=== PATIENT | female | born 1985 | race Caucasian/White ===

== ENCOUNTER 2016-11-15 23:05 | Emergency (ER) | payer SELFPAY ==
--- NOTE | ~2016-11-15 | CR72 ---
[facility] A Service of [facility] RADIOLOGY TEXT RESULTS PATIENT: MARY CARMEN LYON LOCATION: [place] : [birth year] UNIT #: [id number] AGE: [address]: ELVER PARRISH APRN SEX: F ORDER DR: [id number] [facility] [address] [place], [place] [address] [id number] E MR#: [id number] Acc #: [id number] NAME: MARY CARMEN LYON : 1985 SEX: F STUDY DATE/TIME: 11/16/2016 1:03 UNIT: [facility] ROOM: STUDY DESCRIPTION: CR Chest Single View Portable Attending Physician: Elver Parrish Aprn Ordering Physician: Elver Parrish Aprn [facility]AG[facility] REPORT This report is preliminary unless electronic signature is present EXAM Portable AP view chest COMPARISON June 13, 2016, November 14, 2012, June 26, 2012. INDICATIONS 31-year-old female with dyspnea, wheezing and sore throat since this morning. History of asthma. FINDINGS Cardiomediastinal silhouette is normal. No evidence of pneumothorax or pleural effusion. There is grossly stable appearance of the pulmonary interstitium which appears mildly prominent, perhaps reflecting reactive airways disease. No evidence of pneumothorax, pleural effusion or consolidative pneumonia. IMPRESSION Stable prominence of pulmonary interstitium, perhaps reflecting reactive airways disease. No evidence of acute pneumonia, pneumothorax or pleural effusion. Dictated by... Aj Tubbs M.D. THIS IS AN ELECTRONICALLY VERIFIED REPORT Aj Tubbs M.D. at 11/19/2016 7:45 PM IOANA/khalida TD: 11/16/2016 09:36 JOB #: [id number] MEDICAL IMAGING REPORT [facility] A Service [facility] RADIOLOGY TEXT RESULTS PATIENT: MARY CARMEN LYON LOCATION: [facility] : [birth year] UNIT #: [id number] AGE: [address]: ELVER PARRISH APRN SEX: F ORDER DR: COPY
[2016-11-15 21:10] LABS: INFLUENZA A NEG (NEG); INFLUENZA B NEG (NEG)
[~2016-11-15 23:05] MED LIST: AFRIN3 ML; ALBUTEROL2.5 MG/0.5 IH; ALBUTEROL20 ml INH; ALPRAZOLAM; AMOXICILLIN500 M1 PO; AMOXICILLIN875 MG PO; ANTIVERT PO; ATIVAN; BENADRYL25 M3 PO; BENTYL20 M1 PO; BENTYL20 MG PO; CARBAMAZEPINE200 M3 PO; CARBATROL100 MG; CIPRO PO; CLINDAMYCIN HC300 MG PO; COLACE PO; DARVOCET-N 1001 TA1 DOB; DENTAL BALLS; DEPAKOTE250 MG PO; DICLOFENAC PO; DIFLUCAN100 MG PO; DOCUSATE SODIU100 MG PO; DOXYCYCLINE HY100 M1 PO; DOXYCYCLINE PO; ERYTHROMYCIN F250 MG PO; FIORICET1 TAB DOB; FIORICET1 TAB PO; FLAGYL PO; HYDROMET SYRUP480 ML PO; IBUPROFEN PO; IMITREX25 MG DOB; IMITREX25 MG PO; KEFLEX500 MG PO; LORTAB 5/500 TA1 TA1 PO; MILK OF MAGNESIA PO; MOBIC PO; NAPROSYN500 MG PO; NAPROXEN PO; NORCO 5/325 TAB1 TAB PO; NORFLEX100 M1 PO; PAIN RELIEVER325 M1 PO; PEN-VEE K PO; PERCOCET5/325 PO; PERIDEX480 ML PO; PHENERGAN25 M1 PO; PREDNISONE PO; PRILOSEC20 MG PO; PROVENTIL17 GM IH; PROZAC PO; PROZAC40 MG PO; PYRIDIUM100 MG PO; SUDAFED PE COLD1 TAB PO; TEGRETOL PO; TYLENOL #3 PO; ULTRAM PO; VIBRAMYCIN100 M1 PO; VICODIN 5/1 TAB 5/50 PO; VICODIN 5/500 T1 TAB PO; VOLTAREN75 MG PO; XANAX XR1 MG PO; XANAX1 MG PO; ZITHROMAX1 G/PKT PO; ZOFRAN ODT4 MG/UDTAB PO; ZOVIRAX800 MG PO; ZYVOX600 MG PO
[2016-11-16 00:44] LABS: URINE APPEARANCE CLOUDY; URINE BILIRUBIN NEG (NEG); URINE BLOOD 3+ (NEG); URINE COLOR YELLOW; URINE GLUCOSE NEG (NEG); URINE KETONE NEG (NEG); URINE LEUKOCYTE ESTERASE NEG (NEG); URINE NITRATE NEG (NEG); URINE PROTEIN NEG (NEG); URINE SPECIFIC GRAVITY 1.024 (1.003-1.035); URINE UROBILINOGEN 0.2 MG/DL (NEG)
[2016-11-16 00:47] LABS: CULTURE INDICATED? YES; U HYALINE CASTS AUWI 0-2 /[LPF]; URINE BACTERIA AUWI 2+ (NEGATIVE); URINE SQUAMOUS EPITHELIAL CELL FEW /[HPF]
== END 2016-11-16 03:08 | disposition home or self-care (01) ==
LOC: CED 23:05
PROVIDERS: Nurse Practitioner Family
DX: J98.01 Acute bronchospasm (principal); R05 Cough; F43.10 Post-traumatic stress disorder, unspecified; G43.909 Migraine, unspecified, not intractable, without status migrainosus; F31.9 Bipolar disorder, unspecified; Z88.2 Allergy status to sulfonamides; Z88.8 Allergy status to other drugs, medicaments and biological substances
CPT/HCPCS: 71010; 81003; 84703; 87086; 87651; 87804; 87880; 94640; 99283

== ENCOUNTER 2017-03-10 01:54 | Emergency (ER) | payer BC ==
--- NOTE | ~2017-03-10 | CT71 ---
[facility] A Service of [facility] RADIOLOGY TEXT RESULTS PATIENT: MARY CARMEN LYON LOCATION: SED : [birth year] UNIT #: [id number] AGE: [address]: Leroy Pugh MD SEX: F ORDER DR: [id number] [place] [id number] E MR#: [id number] Acc #: [id number] NAME: MARY CARMEN LYON : 1985 SEX: F STUDY DATE/TIME: 03/10/2017 03:05 UNIT: SED ROOM: STUDY DESCRIPTION: CT Head Wo Contrast Attending Physician: Leroy Pugh M.D. Ordering Physician: Leroy Pugh M.D. Primary Care Physician: [facility] IMAGING REPORT This report is preliminary unless electronic signature is present. EXAM Head CT, 03/10 at 03:05 INDICATION Headache with possible seizure today. History of seizures. COMPARISON 01/12/[address] exam was performed with one or more of the following radiation dose reduction techniques: automatic exposure control, adjustment of mA and/or kV according to patient size, and iterative reconstruction. FINDINGS Axial noncontrast images were obtained from the skull base to the vertex. Ventricular size and configuration are normal. There is no evidence of acute infarct or hemorrhage. There are no extraaxial fluid collections. No mass lesion or mass effect is seen. There are no skull fractures. IMPRESSION Normal noncontrast head CT. Dictated by... Jose Luis Ng Jr., M.D. THIS IS AN ELECTRONICALLY VERIFIED REPORT Jose Luis Ng Jr., M.D. at 03/10/2017 9:53 PM NATHALIE/melly TD: 03/10/2017 09:03 JOB #: [id number] [facility] A Service of [facility] RADIOLOGY TEXT RESULTS PATIENT: MARY CARMEN LYON LOCATION: SED : [birth year] UNIT #: [id number] AGE: [address]: Leroy Pugh MD SEX: F ORDER DR: MEDICAL IMAGING REPORT Page 1 of 1
--- NOTE | ~2017-03-10 | CT4 ---
[facility] A Service of [facility] RADIOLOGY TEXT RESULTS PATIENT: MARY CARMEN LYON LOCATION: SED : [birth year] UNIT #: [id number] AGE: [address]: Leroy Pugh MD SEX: F ORDER DR: [id number] [place] [id number] E MR#: [id number] Acc #: [id number] NAME: MARY CARMEN LYON : 1985 SEX: F STUDY DATE/TIME: 03/10/2017 03:02 UNIT: SED ROOM: STUDY DESCRIPTION: CT Abd and Pelv Wo Cont Attending Physician: Leroy Pugh M.D. Ordering Physician: Leroy Pugh M.D. Primary Care Physician: [facility] IMAGING REPORT This report is preliminary unless electronic signature is present. EXAM CT abdomen and pelvis, 03/10 at 03:02 INDICATION Left lower quadrant pain with burning for 4 days. TECHNIQUE Axial images were obtained through the abdomen and pelvis without contrast. Multiplanar reformats were obtained. This CT exam was performed with one or more of the following radiation dose reduction techniques: automatic exposure control, adjustment of mA and/or kV according to patient size, and iterative reconstruction. COMPARISON 02/08/2013 FINDINGS ABDOMEN: Lung bases are clear. Gallbladder unremarkable. Tiny bilateral nonobstructing renal stones are seen. There are no ureteral stones, and there is no hydronephrosis. Unenhanced solid organs are otherwise normal. Unopacified GI tract is normal. There is no free fluid. PELVIS: There are no lower ureteral stones. The bladder is relatively decompressed but grossly normal. Uterus is retroflexed. Tubal ligation clips are present. The appendix is normal. The remainder of the unopacified GI tract is normal as well. Trace free fluid is probably physiologic. Note is made of multiple body piercings. IMPRESSION 1. Tiny bilateral nonobstructing renal stones. No ureteral stones are seen and there is no hydronephrosis. 2. Normal unopacified GI tract, including the appendix. [facility] A Service of [facility] RADIOLOGY TEXT RESULTS PATIENT: MARY CARMEN LYON LOCATION: SED : [birth year] UNIT #: [id number] AGE: [address]: Leroy Pugh MD SEX: F ORDER DR: 3. Trace free fluid in the cul-de-sac, probably a physiologic finding. 4. Tubal ligation. Dictated by... Jose Luis Ng Jr., M.D. THIS IS AN ELECTRONICALLY VERIFIED REPORT Jose Luis Ng Jr., M.D. at 03/10/2017 9:53 PM NATHALIE/melly TD: 03/10/2017 08:57 JOB #: [id number] MEDICAL IMAGING REPORT Page 1 of 1
[2017-03-10] MEDS ORDERED: TEGRETOL XR200 M1 PO (02:03)
[2017-03-10 02:22] LABS: URINE SOURCE CLEAN CATCH
[2017-03-10 02:24] LABS: MICRO INDICATED? YES; URINE APPEARANCE CLEAR; URINE BILIRUBIN NEG (NEG); URINE BLOOD 3+ (NEG); URINE COLOR YELLOW; URINE GLUCOSE NEG (NORM); URINE KETONE NEG (NEG); URINE LEUKOCYTE ESTERASE NEG (NEG); URINE NITRATE NEG (NEG); URINE PH 5.5 (5-8); URINE PROTEIN NEG (NEG); URINE SPECIFIC GRAVITY <=1.005 (1.003-1.035); URINE UROBILINOGEN 0.2 MG/DL (NORM)
[2017-03-10 02:26] LABS: CULTURE INDICATED? YES; URINE BACTERIA 1+ (NEG); URINE MUCUS PRESENT; URINE SQUAMOUS EPITHELIAL CELL OCCAS /[HPF]
[2017-03-10 02:48] LABS: BASOPHIL# 0.1 X10e3 (0-0.3); BASOPHIL% 1.1 % (0-2.5); EOSINOPHIL# 0.2 X10e3 (0-0.7); EOSINOPHIL% 1.8 % (0.0-7.0); HEMATOCRIT 42.2 % (35.0-45.0); HEMOGLOBIN 14.1 gm/dL (12.0-16.0); LYMPHOCYTE# 2.8 X10e3 (1.0-3.5); LYMPHOCYTE% 32.7 % (17.0-45.0); MEAN CELL VOLUME 95.9 FL (83-96); MEAN CORPUSCULAR HEMOGLOBIN 32.2 PG (28-34); MEAN CORPUSCULAR HGB CONC 33.5 g/dL (30-36); MEAN PLATELET VOLUME 8.4 FL (6.5-11.5); MONOCYTE# 0.6 X10e3 (0-1.0); MONOCYTE% 7.4 % (3.0-12.0); PLATELET COUNT 204 X10e3 (140-420); RED BLOOD COUNT 4.39 X10e (3.90-5.30); RED CELL DISTRIBUTION WIDTH 12.8 % (11.0-15.5); WHITE BLOOD COUNT 8.7 X10e3 (4.0-10.5)
[2017-03-10 02:49] LABS: DIFF IND NO
[2017-03-10 03:03] LABS: CALCIUM SERUM 9.1 mg/dL (8.4-10.2); CREATININE SERUM 0.5 mg/dL (0.6-1.4); POTASSIUM 3.4 mmol/L (3.5-5.1)
== END 2017-03-10 04:36 | disposition home or self-care (01) ==
LOC: SED 01:54
PROVIDERS: Emergency Medicine
DX: N39.0 Urinary tract infection, site not specified (principal); H57.02 Anisocoria; J45.909 Unspecified asthma, uncomplicated; Z88.8 Allergy status to other drugs, medicaments and biological substances; Z88.2 Allergy status to sulfonamides; Z79.899 Other long term (current) drug therapy
CPT/HCPCS: 36415; 70450; 74176; 80048; 81003; 84703; 85025; 87086; 96374; 99284; J1885